=== PATIENT | female | born 1990 | race Caucasian/White ===

== ENCOUNTER → 2019-06-08 | Outpatient (CLI) | payer BC | LOC: M LABSMTC 10:37 | PROVIDERS: ATTEND Family Medicine | DX: Z11.59 Encounter for screening for other viral diseases (principal); Z20.828 Contact with and (suspected) exposure to other viral communicable diseases ==

== ENCOUNTER → 2019-10-21 | Outpatient (CLI) | payer BC, MEDICAID | LOC: M RAD 15:45 | PROVIDERS: ATTEND Physician Assistant | DX: R53.1 Weakness (principal) ==